=== PATIENT | male | born 1945 | race Caucasian/White ===

== ENCOUNTER 2017-03-23 10:40 | Emergency (ER) | payer OTHER ==
[2017-03-23 10:47] VITALS: TEMP 98.1
[2017-03-23] MEDS ORDERED: ONDANSETRON 4 MG/2 ML VIAL IVP ONE (11:22)
[2017-03-23] MEDS ORDERED: NS 1,000 ML IV ONE (11:22)
[2017-03-23] MEDS ORDERED: LORazepam 2 MG/ML INJ IVP ONE (11:23)
--- NOTE | 2017-03-23 11:26 | EDPHY ---
H & P Stated Complaint: ?ETOH withdrawl Time Seen by Provider: 03/23/17 11:10 HPI/ROS: CHIEF COMPLAINT: Alcohol withdrawal HISTORY OF PRESENT ILLNESS: This is a 71-year-old male presenting to the emergency department, he patient reports" trying to quit drinking and going through withdrawals right now" patient states he has been an avid drinker for greater than 10 years, his last drink was yesterday 4 beers and 2 shots of hard liquor which is less than what he normally drinks. Patient stated "shakiness and nausea started this morning" after waking up, "I did not want to drink this morning" Denies any history of seizures with alcohol withdrawal, does have a history of pancreatitis not complaining of abdominal pain no vomiting. Denies any chest pain or shortness of breath REVIEW OF SYSTEMS: Constitutional: No fever, no chills. Decreased appetite generalized weakness Eyes: No discharge. ENT: No sore throat. Cardiovascular: No chest pain, no palpitations. Respiratory: No cough, no shortness of breath. Gastrointestinal: No abdominal pain, no vomiting. Nausea Genitourinary: No hematuria. Musculoskeletal: No back pain. Skin: No rashes. Neurological: No headache. Source: Patient - Personal History Current Tetanus/Diphtheria Vaccine: Unsure Current Tetanus Diphtheria and Acellular Pertussis (TDAP): Unsure - Medical/Surgical History Hx Asthma: No Hx Chronic Respiratory Disease: No Hx Diabetes: No Hx Cardiac Disease: No Hx Renal Disease: No Hx Cirrhosis: No Hx Alcoholism: Yes Hx HIV/AIDS: No Hx Splenectomy or Spleen Trauma: No Other PMH: ETOH abuse, gout, HTN, BPH, Pancreatitis - Social History Smoking Status: Former smoker - Physical Exam Exam: General Appearance: Alert, no distress. Eyes: Pupils equal and round no pallor or injection. ENT, Mouth: Mucous membranes moist. Respiratory: There are no retractions, lungs are clear to auscultation. Nonlabored respiratory effort Cardiovascular: Regular rate and rhythm. Gastrointestinal: Abdomen is soft and nontender, no masses, bowel sounds normal. Neurological: No focal deficits. Tremulous Skin: Warm and dry, no rashes. Musculoskeletal: Neck is supple nontender. Extremities: symmetrical, full range of motion. Equal bilateral manager in training strength Psychiatric: Patient is oriented X 3. No agitation, calm Constitutional: Initial Vital Signs Temperature (C) 36.7 C 03/23/17 10:45 Heart Rate 122 H 03/23/17 10:45 Respiratory Rate 16 03/23/17 10:45 Blood Pressure 127/73 H 03/23/17 10:45 O2 Sat (%) 96 03/23/17 10:45 O2 Delivery Mode Room Air Allergies/Adverse Reactions: No Known Allergies Allergy (Unverified 03/28/10 18:48) Home Medications: Medication Instructions Recorded ALLOPURINOL 300 mg 03/28/10 Lisinopril/Hctz 10 mg/12.5 mg 03/28/10 Motrin 03/28/10 Medical Decision Making ED Course/Re-evaluation: Discussed the plan of care: CBC CMP, IV fluids dehydration, IV Ativan, IV Zofran, 1315: Re-evaluation--> AAO x3, not in any distress mild tremors noted, no nausea vomiting patient tolerating p.o. intake 1345: Patient state "I feel better, ready to go" discussed with patient going to the [facility] for voluntarily detox patient declined at this time. re-evaluation ambulatory with steady gait, no neuro deficits, AAO x3 not in any distress. Discharge home---> stable, discussed discharge instructions with patient Differential Diagnosis: Other differential diagnosis considered not limited to seizure from alcohol withdrawal, alcohol intoxication, AMS due to drug or alcohol intoxication - Data Points Laboratory Results: Laboratory Results 03/23/17 11:00 03/23/17 11:00 03/23/17 03/23/17 11:00 11:00 WBC 3.76 10^3/uL L 10^3/uL (3.80-9.50) RBC 4.61 10^6/uL 10^6/uL (4.40-6.38) Hgb 15.2 g/dL g/dL (13.7-17.5) Hct 41.4 % % (40.0-51.0) MCV 89.8 fL fL (81.5-99.8) MCH 33.0 pg pg (27.9-34.1) MCHC 36.7 g/dL g/dL (32.4-36.7) RDW 12.2 % % (11.5-15.2) Plt Count 71 10^3/uL L 10^3/uL (150-400) MPV 9.1 fL fL (8.7-11.7) Neut % (Auto) 64.9 % % (39.3-74.2) Lymph % (Auto) 19.4 % % (15.0-45.0) [place] % (Auto) 14.1 % H % (4.5-13.0) Eos % (Auto) 0.3 % L % (0.6-7.6) Baso % (Auto) 0.8 % % (0.3-1.7) Nucleat RBC Rel Count 0.0 % % (0.0-0.2) Absolute Neuts (auto) 2.44 10^3/uL 10^3/uL (1.70-6.50) Absolute Lymphs (auto) 0.73 10^3/uL L 10^3/uL (1.00-3.00) Absolute Monos (auto) 0.53 10^3/uL 10^3/uL (0.30-0.80) Absolute Eos (auto) 0.01 10^3/uL L 10^3/uL (0.03-0.40) Absolute Basos (auto) 0.03 10^3/uL 10^3/uL (0.02-0.10) Absolute Nucleated RBC 0.00 10^3/uL 10^3/uL (0-0.01) Immature Gran % 0.5 % % (0.0-1.1) Immature Gran # 0.02 10^3/uL 10^3/uL (0.00-0.10) Sodium 130 mEq/L L mEq/L (134-144) Potassium 4.1 mEq/L mEq/L (3.5-5.2) Chloride 93 mEq/L L mEq/L (97-110) Carbon Dioxide 24 mEq/l mEq/l (22-31) Anion Gap 13 mEq/L mEq/L (8-16) BUN 15 mg/dL mg/dL (7-23) Creatinine 1.2 mg/dL mg/dL (0.7-1.3) Estimated GFR 60 Glucose 154 mg/dL H mg/dL (70-100) Calcium 9.1 mg/dL mg/dL (8.5-10.4) Total Bilirubin 2.6 mg/dL H mg/dL (0.1-1.4) Conjugated Bilirubin 1.1 mg/dL H mg/dL (0.0-0.5) Unconjugated Bilirubin 1.5 mg/dL H mg/dL (0.0-1.1) AST 421 IU/L H IU/L (17-59) ALT 269 IU/L H IU/L (21-72) Alkaline Phosphatase 116 IU/L IU/L (38-126) Total Protein 7.1 g/dL g/dL (6.3-8.2) Albumin 4.6 g/dL g/dL (3.5-5.0) Medications Given: Discontinued Medications Folic Acid (Folic Acid) 1 mg PO EDNOW ONE Stop: 03/23/17 11:34 Last Admin: 03/23/17 11:53 Dose: 1 mg Sodium Chloride (Ns) 1,000 mls @ 0 mls/hr IV ONCE ONE PRN Reason: Wide Open Stop: 03/23/17 11:23 Last Admin: 03/23/17 11:41 Dose: 1,000 mls Lorazepam (Ativan Injection) 2 mg IVP ONCE ONE Stop: 03/23/17 11:24 Last Admin: 03/23/17 11:53 Dose: 2 mg Lorazepam (Ativan) 1 mg PO EDNOW ONE Stop: 03/23/17 13:50 Last Admin: 03/23/17 14:03 Dose: 1 mg Multivitamins (Tab-A-Rodriguez) 1 each PO EDNOW ONE Stop: 03/23/17 11:34 Last Admin: 03/23/17 11:53 Dose: 1 each Ondansetron HCl (Zofran) 4 mg IVP EDNOW ONE Stop: 03/23/17 11:23 Last Admin: 03/23/17 11:53 Dose: 4 mg Thiamine HCl (Vitamin B-1) 100 mg PO EDNOW ONE Stop: 03/23/17 11:31 Last Admin: 03/23/17 11:53 Dose: 100 mg Departure - Departure Disposition: Home, Routine, Self-Care Clinical Impression: Alcohol withdrawal Qualifiers: Complication of substance-induced condition: uncomplicated Qualified Code(s): F10.230 - Alcohol dependence with withdrawal, uncomplicated Condition: Good Instructions: Abuse of Alcohol (ED), Alcohol Withdrawal (ED), Alcohol Use Disorder (ED) Additional Instructions: Discussed discharge instructions 1. The increase fluid intake 2. I would recommend following up at the [facility] for voluntary detox 3. Any worsening symptoms such as seizure, nausea vomiting, unsteady gait return to the emergency room 4. The stop drinking alcohol Referrals: VENECIA DASH [Other] - As per Instructions
[2017-03-23 11:29] LABS: % IMMATURE GRANULYOCYTES 0.5 % (0.0-1.1); ABSOLUTE IMMATURE GRANULOCYTES 0.02 10^3/uL (0.00-0.10); ADD DIFF? NO; ADD MORPH? NO; ADD SCAN? NO; ATYPICAL LYMPHOCYTE FLAG 0 (0-99); FRAGMENT RBC FLAG 0 (0-99); HEMATOCRIT 41.4 % (40.0-51.0); HEMOGLOBIN 15.2 g/dL (13.7-17.5); LEFT SHIFT FLG 0 (0-99); LIPEMIA HEMOLYSIS FLAG 90 (0-99); MEAN CELL HEMOGLOBIN CONCENTR. 36.7 g/dL (32.4-36.7); MEAN CELL VOLUME 89.8 fL (81.5-99.8); MEAN PLATELET VOLUME 9.1 fL (8.7-11.7); PLATELET CLUMPS FLAG 10 (0-99); PLATELET COUNT 71 10^3/uL (150-400); RED BLOOD CELL COUNT 4.61 10^6/uL (4.40-6.38); RED CELL DISTRIBUTION WIDTH 12.2 % (11.5-15.2)
[2017-03-23] MEDS ORDERED: THIAMINE HCL 100 MG TAB PO ONE (11:30)
[2017-03-23] MEDS ORDERED: FOLIC ACID 1 MG TAB PO ONE (11:33)
[2017-03-23] MEDS ORDERED: MULTIVITAMINS 1 EACH TAB PO ONE (11:33)
[2017-03-23 11:46] LABS: ALANINE AMINOTRANSFERASE 269 IU/L (21-72); ALBUMIN 4.6 g/dL (3.5-5.0); ALKALINE PHOSPHATASE 116 IU/L (38-126); ANION GAP 13 mEq/L (8-16); ASPARTATE AMINOTRANSFERASE 421 IU/L (17-59); BILIRUBIN,TOTAL 2.6 mg/dL (0.1-1.4); CALCIUM 9.1 mg/dL (8.5-10.4); CARBON DIOXIDE 24 mEq/l (22-31); CHLORIDE 93 mEq/L (97-110); CREATININE 1.2 mg/dL (0.7-1.3); GLOMERULAR FILTRATION RATE 60; GLUCOSE 154 mg/dL (70-100); POTASSIUM 4.1 mEq/L (3.5-5.2); SODIUM 130 mEq/L (134-144); TOTAL PROTEIN 7.1 g/dL (6.3-8.2)
[2017-03-23 12:06] LABS: BILIRUBIN-CONJUGATED 1.1 mg/dL (0.0-0.5); BILIRUBIN-UNCONJUGATED 1.5 mg/dL (0.0-1.1)
[2017-03-23 13:04] VITALS: RESP 18
[2017-03-23] MEDS ORDERED: LORazepam 1 MG TAB PO ONE (13:49)
[2017-03-23 14:06] VITALS: BP 135/81; PULSE 99; O2SAT 94
== END 2017-03-23 14:07 | disposition home or self-care (01) ==
DX: F10.230 Alcohol dependence with withdrawal, uncomplicated (principal); I10 Essential (primary) hypertension; Z87.891 Personal history of nicotine dependence
CPT/HCPCS: 96374; J2060; J2405